=== PATIENT | female | born 2000 ===

== ENCOUNTER 2021-04-13 11:49 | Outpatient (CLI) | payer OTHER ==
[~2021-04-13] VITALS: Ht 160 cm; Wt 103.9 kg
[2021-04-13] VITALS (11 sets, daily range): BP systolic 127–173; BP diastolic 79–107
[2021-04-13] MEDS ORDERED: ACET-897 PO (12:06)
[2021-04-13] MEDS ORDERED: PRENTAB9 PO (12:06)
[2021-04-13] MEDS ORDERED: HOME MED LIST COMPLETE! XX SCH (12:10)
[2021-04-13 13:00] LABS: HEMATOCRIT 33.2 % (36.0-47.0); MEAN CORPUSCULAR HEMOGLOBIN 27.4 pg (27.0-33.0); MEAN CORPUSCULAR HGB CONC 33.1 g/dl (32.0-36.5); MEAN CORPUSCULAR VOLUME 82.6 fl (80.0-96.0); PLATELET COUNT, AUTOMATED 203 10^3/uL (150-450); RED BLOOD COUNT 4.02 10^6/uL (4.00-5.40)
[2021-04-13 14:08] LABS: ALBUMIN 2.4 GM/DL (3.2-5.2); ALT/SGPT 14 U/L (12-78); BILIRUBIN,TOTAL 0.2 MG/DL (0.2-1.0); BLOOD UREA NITROGEN 6 MG/DL (7-18); CALCIUM LEVEL 9.1 MG/DL (8.5-10.1); CARBON DIOXIDE LEVEL 23 MEQ/L (21-32); CHLORIDE LEVEL 110 MEQ/L (98-107); CREATININE FOR GFR 0.58 MG/DL (0.55-1.30); GLOMERULAR FILTRATION RATE > 60.0 (>60); GLUCOSE, FASTING 109 MG/DL (70-100); POTASSIUM SERUM 4.1 MEQ/L (3.5-5.1); SODIUM LEVEL 139 MEQ/L (136-145); TOTAL PROTEIN 6.3 GM/DL (6.4-8.2)
== END 2021-04-13 15:03 | disposition home or self-care (01) ==
LOC: M LDO 11:49
PROVIDERS: ATTEND Registered Nurse
DX: O26.893 Other specified pregnancy related conditions, third trimester (principal); R03.0 Elevated blood-pressure reading, without diagnosis of hypertension; Z3A.37 37 weeks gestation of pregnancy; O99.213 Obesity complicating pregnancy, third trimester; E66.9 Obesity, unspecified
CPT/HCPCS: 59025; 80053; 82570; 84156; 85027; G0378; G0463

== ENCOUNTER 2021-04-22 18:19 | Inpatient (IN) | payer OTHER ==
[~2021-04-22] VITALS: Ht 160 cm; Wt 103.7 kg
[~2021-04-22 18:19] MED LIST: ACET-897 PO; PRENTAB9 PO
[2021-04-22] MEDS ORDERED: HOME MED LIST COMPLETE! XX SCH (18:45)
[2021-04-22 18:49] VITALS: BP 137/87
[2021-04-22 19:15] VITALS: BP 131/86
[2021-04-22 19:33] LABS: HEMATOCRIT 34.7 % (36.0-47.0); HEMOGLOBIN 11.4 g/dl (12.0-15.5); MEAN CORPUSCULAR HEMOGLOBIN 27.3 pg (27.0-33.0); MEAN CORPUSCULAR HGB CONC 32.9 g/dl (32.0-36.5); MEAN CORPUSCULAR VOLUME 83.2 fl (80.0-96.0); PLATELET COUNT, AUTOMATED 214 10^3/uL (150-450); RED BLOOD COUNT 4.17 10^6/uL (4.00-5.40)
[2021-04-22] MEDS ORDERED: TRANEXAMIC ACID INJection 1,000 MG in NS 100 ML IV PRN (19:45)
[2021-04-22] MEDS ORDERED: OXYTOCIN INJ 10 UNITS/ML VIAL (J2590) IV PRN (19:45)
[2021-04-22] MEDS ORDERED: OXYTOCIN DRIP 30 UNITS in IV 1 EA IV PRN ×4 (19:45)
[2021-04-22] MEDS ORDERED: miSOPROStol 50MCG 1/2 TABLET PO ONE ×2 (19:45→23:25)
[2021-04-22 19:49] LABS: TOTAL PROTEIN,RANDOM URINE 35.3 MG/DL (0.0-12.0)
[2021-04-22 19:55] LABS: ALT/SGPT 13 U/L (12-78); BILIRUBIN,TOTAL 0.3 MG/DL (0.2-1.0); CREATININE FOR GFR 0.64 MG/DL (0.55-1.30); GLOMERULAR FILTRATION RATE > 60.0 (>60); LDH LACTATE DEHYDROGENASE 169 U/L (84-246); URIC ACID 4.4 MG/DL (2.6-6.0)
[2021-04-22] MEDS: LR 1,000 ML IV SCH (22:00)
[2021-04-23] VITALS (16 sets, daily range): BP systolic 118–150; BP diastolic 74–99
[2021-04-23] MEDS ORDERED: miSOPROStol 50MCG 1/2 TABLET PO ONE (07:50)
[2021-04-23] MEDS ORDERED: miSOPROStol 25MCG 1/4 TABLET PV ONE ×2 (12:25→17:50)
[2021-04-23] MEDS ORDERED: OXYTOCIN 30 UNITS IN 0.9% NaCl 500ML IV BAG (J2590) As Ordered ONE (22:12)
[2021-04-23] MEDS: OXYTOCIN DRIP 30 UNITS in IV 1 EA IV SCH ×2 (22:30→23:11)
[2021-04-24] VITALS (64 sets, daily range): BP systolic 109–158; BP diastolic 56–108
[2021-04-24] MEDS: LR 1,000 ML IV SCH ×2 (08:05→12:05)
[2021-04-24] MEDS ORDERED: FENTANYL 2MCG/ML ROPIVACAINE 0.2% IN 0.9% NACL 100ML IVBAG As Ordered ONE (08:09)
[2021-04-24] MEDS ORDERED: LACTATED RINGER'S 1000 ML IV PRN (10:10)
[2021-04-24] MEDS ORDERED: ONDANSETRON 4MG/2ML VIAL IV PRN ×2 (10:10→20:50)
[2021-04-24] MEDS ORDERED: REFRIGERATOR IV KEYS XX PRN (10:10)
[2021-04-24] MEDS ORDERED: EPIDURAL COMMENT XX SCH (10:10)
[2021-04-24] MEDS ORDERED: NALOXONE INJ 0.4MG/1ML VIAL (J2310 PER 1MG) IV PRN (10:10)
[2021-04-24] MEDS ORDERED: EPIDURAL/PCA KEYS XX PRN (10:10)
[2021-04-24] MEDS ORDERED: diphenhydrAMINE 50MG/ML VIAL (J1200) IV PRN (10:10)
[2021-04-24] MEDS: FENTANYL/ROPIVACAINE/NACL BAG 100 ML EPIDURAL SCH ×2 (10:52→17:47)
[2021-04-24] MEDS: ePHEDrine SULFATE 25 MG/5 ML(5MG/ML) SYRINGE IV PRN ×5 (11:28→12:53)
[2021-04-24] MEDS ORDERED: ePHEDrine INJ 50 MG/ML VIAL IV PRN (12:00)
[2021-04-24] MEDS ORDERED: ePHEDrine SULFATE 25 MG/5 ML(5MG/ML) SYRINGE IV PRN (12:10)
[2021-04-24] MEDS ORDERED: ANUSOL HC CREAM 30GM TOP PRN (20:50)
[2021-04-24] MEDS ORDERED: RHOGAM 300 MCG (1500 IU) INJ (J2790) IM SCH (20:50)
[2021-04-24] MEDS ORDERED: ACETAMINOPHEN TAB 650MG DOSE (2X325MG) PO PRN (20:50)
[2021-04-24] MEDS ORDERED: MEASLES,MUMPS,RUBELLA VACCINE INJ (MMR-II) (90707) SC SCH (20:50)
[2021-04-24] MEDS ORDERED: IBUPROFEN 800 MG TAB PO PRN (20:50)
[2021-04-24] MEDS ORDERED: ACETAMINOPHEN 500 MG TAB PO PRN (20:50)
[2021-04-24] MEDS ORDERED: OXYTOCIN DRIP 30 UNITS in IV 1 EA IV SCH ×4 (20:50)
[2021-04-24] MEDS ORDERED: DOCUSATE SODIUM 100MG CAPSULE PO PRN (20:50)
[2021-04-24] MEDS ORDERED: IBUPROFEN 600MG TAB PO PRN (20:50)
[2021-04-24] MEDS ORDERED: DIBUCAINE 1% OINTMENT 30GM TOP PRN (20:50)
[2021-04-24] MEDS ORDERED: METHYLERGONOVINE MALEATE 0.2 MG TAB PO PRN (20:50)
[2021-04-25 05:59] VITALS: BP 143/93
[2021-04-25] MEDS: PRENATAL VITAMINS CHEWABLE TABLET PO SCH (09:30)
[2021-04-25 17:58] VITALS: BP 113/62
[2021-04-26 06:00] VITALS: BP 125/64
[2021-04-26] MEDS ORDERED: IBUP80TA PO (06:15)
[2021-04-26] MEDS ORDERED: ACET1TAB55 PO (06:15)
[2021-04-26] MEDS ORDERED: COLA100C5 PO (06:15)
[2021-04-26] MEDS: PRENATAL VITAMINS CHEWABLE TABLET PO SCH (07:56)
== END 2021-04-26 10:15 | disposition home or self-care (01) | DRG 807 ==
LOC: M LDI 18:19 → M OBS 04-24 22:22
PROVIDERS: ADMIT Obstetrics & Gynecology; ATTEND Obstetrics & Gynecology
PROC: 3E0P7VZ Introduction of Hormone into Female Reproductive, Via Natural or Artificial Opening (ICD-10-PCS; 2021-04-23)
PROC: 10E0XZZ Delivery of Products of Conception, External Approach (ICD-10-PCS; principal; 2021-04-24)
PROC: 0KQM0ZZ Repair Perineum Muscle, Open Approach (ICD-10-PCS; 2021-04-24)
DX: O13.4 Gestational [pregnancy-induced] hypertension without significant proteinuria, complicating childbirth (principal); Z37.0 Single live birth; Z3A.38 38 weeks gestation of pregnancy; O69.82X0 Labor and delivery complicated by other cord entanglement, without compression, not applicable or unspecified; O70.1 Second degree perineal laceration during delivery